=== PATIENT | female | born 1945 | race Caucasian/White ===

== ENCOUNTER 2017-06-02 08:32 | Emergency (ER) | payer BC ==
[~2017-06-02] VITALS: Ht 165.1 cm; Wt 11.3 kg
[~2017-06-02 08:32] MED LIST: NOHOMEMEDS
[2017-06-02 13:40] VITALS: BP 138/90
== END 2017-06-02 13:40 | disposition home or self-care (01) ==
LOC: EME 08:32
PROC: 0HQ0XZZ Repair Scalp Skin, External Approach (ICD-10-PCS; principal; 2017-06-02)
DX: S01.01XA Laceration without foreign body of scalp, initial encounter (principal); W00.0XXA Fall on same level due to ice and snow, initial encounter; Z87.891 Personal history of nicotine dependence
CPT/HCPCS: 99281; 99284